=== PATIENT | male | born 1945 | race Caucasian/White ===

== ENCOUNTER 2017-04-26 06:00 | Day surgery (SDC) | payer OTHER ==
[~2017-04-26] VITALS: Ht 165.1 cm; Wt 77.1 kg
[2017-04-26] MEDS ORDERED: LISINOPRIL10 MG PO (14:30)
[2017-04-26] MEDS ORDERED: METFORMIN HCL500 MG PO (14:31)
[2017-04-26] MEDS ORDERED: ATORVASTATIN CA10 MG PO (14:33)
[2017-04-27] MEDS ORDERED: OXYC1TAB9 PO (07:04)
== END 2017-04-27 07:00 | disposition home or self-care (01) ==
LOC: CIR.AMB 06:00 → SURH 07:00 → O/R 11:38 → SURH 11:38 → EDSTATUS 12:45 → SURH 12:45 → CIR.AMB 04-27 07:00 → SURH 04-27 10:30 → O/R 04-27 10:30
DX: K62.1 Rectal polyp (principal); I11.9 Hypertensive heart disease without heart failure; E11.9 Type 2 diabetes mellitus without complications; E78.00 Pure hypercholesterolemia, unspecified

== ENCOUNTER 2017-05-02 19:16 | Inpatient (IN) | payer OTHER ==
[~2017-05-02] VITALS: Ht 167.6 cm; Wt 74.8 kg
[~2017-05-02 19:16] MED LIST: ATORVASTATIN CA10 MG PO; LISINOPRIL10 MG PO; METFORMIN HCL500 MG PO; OXYC1TAB9 PO
== END 2017-05-05 18:36 | disposition home or self-care (01) | DRG 921 ==
LOC: ER 19:16 → SURG 20:41 → SEC-K 20:41 → SURG 21:31
PROC: 0W3P8ZZ Control Bleeding in Gastrointestinal Tract, Via Natural or Artificial Opening Endoscopic (ICD-10-PCS; principal; 2017-05-03)
DX: K91.841 Postprocedural hemorrhage of a digestive system organ or structure following other procedure (principal); K62.89 Other specified diseases of anus and rectum; E78.00 Pure hypercholesterolemia, unspecified; E11.9 Type 2 diabetes mellitus without complications; I11.9 Hypertensive heart disease without heart failure; D07.5 Carcinoma in situ of prostate; K62.1 Rectal polyp